=== PATIENT | female | born 1995 | race Caucasian/White ===

== ENCOUNTER 2023-02-12 15:42 | Outpatient (RCR) | payer BC, SELFPAY ==
[2023-01-15 17:27] VITALS: BP 119/71; PULSE 78
[2023-02-12 16:29] VITALS: BP 118/71; PULSE 81
== END 2023-04-15 23:59 | disposition home or self-care (01) ==
LOC: ANHOBOP 15:42
PROVIDERS: Visit Provider Obstetrics & Gynecology
DX: O36.8130 Decreased fetal movements, third trimester, not applicable or unspecified (principal); Z3A.33 33 weeks gestation of pregnancy; Z3A.37 37 weeks gestation of pregnancy
CPT/HCPCS: 59025

== ENCOUNTER 2023-02-14 09:36 | Outpatient (CLI) | payer BC, SELFPAY ==
[2023-02-14 10:28] VITALS: BP 110/55; PULSE 82
--- NOTE | 2023-02-14 11:30 | PC.NURSE ---
Dr Mercado notified of BP and SROM plus negative. OK to DC home, no PIH labs required at this time.
== END 2023-02-14 10:37 | disposition home or self-care (01) ==
LOC: ANHOBOP 10:34 → ANHOBPP 10:34
PROVIDERS: Visit Provider Obstetrics & Gynecology
DX: O26.859 Spotting complicating pregnancy, unspecified trimester (principal); Z3A.00 Weeks of gestation of pregnancy not specified
CPT/HCPCS: 59025; 84112; 99199

== ENCOUNTER 2023-02-17 13:07 | Outpatient (CLI) | payer BC, SELFPAY ==
[2023-02-17 14:07] LABS: RSV RNA, RT-PCR Negative (Negative)
== END 2023-02-17 13:08 | disposition home or self-care (01) ==
LOC: CHSLAB 13:09
PROVIDERS: PCP Family Medicine; Visit Provider Family Medicine
DX: R05.9 Cough, unspecified (principal)
CPT/HCPCS: 87634

== ENCOUNTER 2023-02-19 12:41 | Observation (INO) | payer BC, SELFPAY ==
--- NOTE | 2023-02-19 16:03 | OBADM ---
This patient, Alexis Reyez, admitted to the OB room Labor/Delivery/Recovery 108 for observation. Patient/family oriented to hospital policies and general routines including ID bracelet, bed and alarms, visiting hours, pain management, procedures, bathroom and other care routines, personal items, smoking policy, room service/diet, and visiting hours. Patient/Family are encouraged to report perceived risks to care and to ask questions if they do not understand what they are told or what they should do.
--- NOTE | 2023-02-19 16:18 | PM.OBTRLD ---
OB - Triage/Final Diagnosis Visit Information Date of evaluation: 02/19/23 Reason for evaluation: threatened labor Comments/Additional reasons for admission: I have assessed the risk for this patient, Alexis Emerson Reyez, and determined that she would benefit from observation care.
--- NOTE | 2023-02-19 16:25 | PC.NURSE ---
1531: RN phoned Dr. Leticia Mcgee to inform in of patient's complaints of contractions, contraction pattern, FHTs, BPs, and both SVE. OB stated pt is probably in early labor and gave orders to discharge patient home with instructions on when to return to the hospital.
== END 2023-02-19 16:20 | disposition home or self-care (01) ==
PROVIDERS: Admitting Provider Obstetrics & Gynecology; PCP Family Medicine; Visit Provider Obstetrics & Gynecology
DX: O47.9 False labor, unspecified (principal); Z3A.00 Weeks of gestation of pregnancy not specified
CPT/HCPCS: G0378; G0379

== ENCOUNTER 2023-02-20 03:09 | Inpatient (IN) | payer BC, SELFPAY ==
[2023-02-20] VITALS (84 sets, daily range): BP systolic 79–156; BP diastolic 37–136; PULSE 62–228; RESP 16–20; TEMP 36.2–36.9; O2SAT 95–100; BMI 42.0
--- NOTE | 2023-02-20 03:49 | LDADM ---
This patient, Alexis Reyez, was admitted to Labor/Delivery/Recovery 105 on 02/20/23 at 03:09. Plans for labor, pain management and were discussed with patient. Patient/family oriented to hospital policies and general routines including ID bracelet, bed and alarms, visiting hours, pain management, procedures, bathroom and other care routines, personal items, smoking policy, room service/diet and guest tray routines, security routines, and visiting hours. Patient/Family are encouraged to report perceived risks to care and to ask questions if they do not understand what they are told or what they should do. See OBIX for further documentation.
[2023-02-20 04:23] LABS: Basophils Percent Auto 0.2 % (0.2-1.2); Eosinophils Percent Auto 0.2 % (0-4.4); Hematocrit 35.8 % (37.0-47.0); Hemoglobin 11.7 g/dL (12.0-15.0); Immature Granulocyte Absolute 0.02 K/mm3 (0.00-0.031); Immature Granulocyte Percent A 0.4 % (0-0.5); Lymphocytes Absolute Auto 1.44 K/mm3 (0.9-3.2); Lymphocytes Percent Auto 25.8 % (18.3-44.2); Mean Corpuscular HGB Conc 32.7 g/dl (32-36); Mean Corpuscular Volume 88.8 fl (80-100); Mean Platelet Volume 11.4 fl (7.4-10.4); Monocytes Absolute Auto 0.3 K/mm3 (0.1-0.6); Monocytes Percent Auto 5.9 % (2.6-8.5); Neutrophils Absolute Auto 3.8 K/mm3 (1.3-6.7); Neutrophils Percent Auto 67.5 % (45.5-73.1); Platelet Count Result 178 k/mm3 (150-375); Red Blood Count 4.03 M/mm3 (4.2-5.4); Red Cell Distribution Width 13.8 % (11.5-14.5); White Blood Count 5.6 K/mm3 (4.5-10.0)
--- NOTE | 2023-02-20 05:46 | WPDANESEPPF ---
Anes - Initial Pre Proc Eval Procedure: Labor epidural Date/Time: 02/20/23 05:46 Surgeon: Enzo Mcgee MD Pre Op Diagnosis: Labor pain Pre Op Diagnosis: Contractions Patient Data Age: 27 Gender: F Height: 1.68 m Weight: 118 kg Last Vital Signs Pulse Ox 100 02/20/23 05:41 O2 Del Method Room Air 02/20/23 03:46 Allergies Allergy/AdvReac Type Severity Reaction Status Date / Time No Known Allergies Allergy Verified 02/20/23 05:14 Home Medications Medication Instructions Recorded Confirmed Type vit no.95-ferrous 1 tablet PO DAILY 01/15/23 02/20/23 History fumarate 28 mg-folic acid 800 mcg tablet () Laboratory Tests 02/20/23 03:40 WBC 5.6 K/mm3 (4.5-10.0) RBC 4.03 L M/mm3 (4.2-5.4) Hgb 11.7 L g/dL (12.0-15.0) Hct 35.8 L % (37.0-47.0) MCV 88.8 fl (80-100) MCH 29.0 pg (26-34) MCHC 32.7 g/dl (32-36) RDW 13.8 % (11.5-14.5) Plt Count 178 k/mm3 (150-375) MPV 11.4 H fl (7.4-10.4) Immature Gran % (Auto) 0.4 % (0-0.5) Neut % (Auto) 67.5 % (45.5-73.1) Lymph % (Auto) 25.8 % (18.3-44.2) [place] % (Auto) 5.9 % (2.6-8.5) Eos % (Auto) 0.2 % (0-4.4) Baso % (Auto) 0.2 % (0.2-1.2) Lymph # (Auto) 1.44 K/mm3 (0.9-3.2) [place] # (Auto) 0.3 K/mm3 (0.1-0.6) Eos # (Auto) 0.0 K/mm3 (0-0.3) Baso # (Auto) 0.0 K/mm3 (0.0-0.1) Abs Immat Gran (auto) 0.02 K/mm3 (0.00-0.031) Absolute Neuts (auto) 3.8 K/mm3 (1.3-6.7) Absolute Nucleated RBC 0.0 K/mm3 (0.0-0.012) Nucleated RBC % 0.0 % (0.0-0.2) RPR Pending Blood Type B Positive Antibody Screen Pending Patient hx anesthesia problems: none Family hx anesthesia problems: none Results Review: All pre-operative results and documents have been reviewed as part of the pre-operative evaluation. [facility] Family History Family History Mother Hypertension Grandparent Cerebrovascular accident Social History Social History Smoking status: Never smoker Substance use: never Do You Feel Safe in your Home?: Yes Lack of Transportation: No Lack of Food: Never True Current Housing: I Have Housing Concerned About Future Housing: No Difficulty Paying Gas/Electric Bills: No Difficulty Paying for Meds: No Currently Unemployed: No Education: Associate Degree Difficulty w/ Childcare or Family Care: No Spiritual care concerns: No Anes - Eval Final PreProcedure Day of Procedure 02/20/23 05:46 Patient weight: morbidly obese Heart: regular rate and rhythm Lungs: clear to auscultation Neurological: alert and oriented ASA classification: III Anesthetic plan: proceed Anesthesia type and monitoring: regional epidural and standard monitoring Results Review: All pre-operative results and documents have been reviewed as part of the pre-operative evaluation. Informed Consent: The patient's anesthetic plan and its attendant risks and benefits were discussed with the patient/family/POA. Questions were solicited and answers provided to the satisfaction of the patient/family/POA.
--- NOTE | 2023-02-20 06:08 | WPDANESEPN ---
Anes - Epidural Procedure Note Date/Time: 02/20/23 06:08 Consent: I have discussed with the patient/family/POA, the placement of an epidural catheter and the use of epidural narcotic/local anesthetic for labor analgesia and/or postoperative pain management, including associated potential risks, benefits, complications and side effects. I have discussed alternative methods of labor analgesia and/or postoperative pain management. The patient/family/POA, understand(s) and wish(es) to proceed with epidural narcotic/local anesthetic for labor analgesia and/or postoperative pain management. Time-Out: A pre-procedural Time-Out was completed immediately before starting the procedure and confirmed: Patient Identification, Site, Procedure, Patient Position and the Availability of Requisite Equipment. Clinical Indications: Labor pain Epidural Insertion Note Patient position: sitting Skin prep: chlorhexidine and sterile drape Needle: 18g Tuohy-Schliff Catheter: 20g Unstyleted Technique: Loss of resistance. Level of insertion: L3/4 Catheter skin maeve (cm): 11 Length in epidural space (cm): 5 Skin anesthesia: lidocaine 1% Test dose: 1.5% Lidocaine with 1:[id number] Epi, negative for subarachnoid Inj and negative for intravascular Inj Time of test dose: 05:58 Observations: tolerated well Complications: none
--- NOTE | 2023-02-20 06:34 | PM.IMHP ---
H&P: HPI History of Present Illness Date/Time: 02/20/23 06:34 Chief Complaint: Term in labor Narrative: this is a 27-year-old 1 para 0 whose last menstrual period was 05/20/2022, EDC is 02/27/2023, presents at 39 weeks gestation in active labor. She had negative group B strep. She had an abnormal 1hour diabetic screen III hours GTT was 4/4 normal. [facility] Family History Family History Mother Hypertension Grandparent Cerebrovascular accident Social History Social History Smoking status: Never smoker Substance use: never Do You Feel Safe in your Home?: Yes Lack of Transportation: No Lack of Food: Never True Current Housing: I Have Housing Concerned About Future Housing: No Difficulty Paying Gas/Electric Bills: No Difficulty Paying for Meds: No Currently Unemployed: No Education: Associate Degree Difficulty w/ Childcare or Family Care: No Spiritual care concerns: No Meds Home Medications and Allergies Home Medications Medication Instructions Recorded Confirmed Type vit no.95-ferrous 1 tablet PO DAILY 01/15/23 02/20/23 History fumarate 28 mg-folic acid 800 mcg tablet () Allergies Allergy/AdvReac Type Severity Reaction Status Date / Time No Known Allergies Allergy Verified 02/20/23 05:14 Vital Signs Vital Signs - 24 hr 02/20/23 05:41 02/20/23 05:46 02/20/23 05:48 Pulse Rate Blood Pressure Pulse Oximetry 100 100 100 Oxygen Delivery 02/20/23 05:48 02/20/23 05:49 02/20/23 05:53 Pulse Rate 84 Blood Pressure 134/80 Pulse Oximetry 98 100 Oxygen Delivery 02/20/23 05:59 02/20/23 06:01 02/20/23 06:03 Pulse Rate 65 77 79 Blood Pressure 137/75 138/85 146/87 H Pulse Oximetry 95 Oxygen Delivery 02/20/23 06:06 02/20/23 06:08 02/20/23 06:11 Pulse Rate 83 88 91 Blood Pressure 140/81 147/65 H 150/82 H Pulse Oximetry 99 99 Oxygen Delivery 02/20/23 06:13 02/20/23 06:16 02/20/23 06:18 Pulse Rate 96 89 89 Blood Pressure 155/136 H 140/73 133/52 L Pulse Oximetry 100 Oxygen Delivery 02/20/23 06:21 02/20/23 06:22 02/20/23 06:24 Pulse Rate 92 117 H Blood Pressure 109/96 H 119/89 Pulse Oximetry 99 Oxygen Delivery 02/20/23 06:26 02/20/23 06:27 02/20/23 06:29 Pulse Rate 90 88 Blood Pressure 128/61 114/68 Pulse Oximetry 100 Oxygen Delivery 02/20/23 06:31 02/20/23 06:32 02/20/23 06:34 Pulse Rate 228 H 91 83 Blood Pressure 79/37 L 100/69 124/79 Pulse Oximetry 100 Oxygen Delivery 02/20/23 03:46 Pulse Rate Blood Pressure Pulse Oximetry Oxygen Delivery Room Air Exam Const: General: cooperative, healthy appearing and comfortable Nutritional Appearance: average body habitus Orientation/consciousness: oriented to person, oriented to place and oriented to time HENMT: Head: normal to inspection Resp: Effort & Inspection: normal respiratory effort Cardio: Rate: regular rate Rhythm: regular rhythm Heart sounds: S1 normal heart sound present and S2 normal heart sound present GI: Inspection: normal to inspection ( Gravid soft uterus) : External Female Exam: normal external appearance Speculum Exam - Vagina: normal appearance of the vagina Speculum Exam - Cervix: normal appearance of the cervix ( cervix 4/90/2. AROM with meconium. FHTs reassuring) H&P: Results Labs Labs: Short CBC 02/20/23 Range/Units 03:40 WBC 5.6 (4.5-10.0) K/mm3 Hgb 11.7 L (12.0-15.0) g/dL Hct 35.8 L (37.0-47.0) % Plt Count 178 (150-375) k/mm3 Assessment and Plan Assessment and plan (1) Term : Code(s): Z34.90 - Encounter for supervision of normal , unspecified, unspecified trimester Status: Acute Plan spontaneous vaginal deliveries expected. Epidural is in and working. Peds will be ma
[2023-02-20] MEDS: OXYTOCIN 30 UNITS/NS 500 ML 30 UNITS/500 ML BAG 6 UNITS IV CONT (07:11)
[2023-02-20] MEDS: LACTATED RINGERS 1,000 ML 125 ML IV CONT (07:13)
--- NOTE | 2023-02-20 11:38 | PM.OBPRVD ---
OB - Vaginal Delivery Note Procedure Delivery date: 02/20/23 Intrapartal Events: Ineffetive Pushing/Maternal Exhaustion Induction method: None Delivery augmentation: Pitocin Delivery monitor: External FHT Route of delivery: forceps (outlet) Episiotomy description: None Laceration Description: None Specimen: No Quantitative Blood Loss (ml): 61 Anesthesia type: Epidural Disposition: Floor Complications: No immediate complications Baby Date of : 02/20/23 Time of : 11:29 Weeks of gestation at delivery: 39 gender: Male presentation: vertex position: Right Occiput Anterior Placenta delivery description: Spontaneous Cord Vessel Description: 3 Vessels score one minute: 9 score five minutes: 9
[2023-02-20] MEDS: OXYTOCIN 30 UNITS/NS 500 ML 30 UNITS/500 ML BAG 125 UNITS IV CONT (12:04)
[2023-02-20] MEDS: IBUPROFEN 600 MG TABLET PO (13:35)
[2023-02-20] MEDS: ACETAMINOPHEN 325 MG TABLET 650 MG PO (13:36)
[2023-02-20] MEDS: BENZOCAINE 20% AER SPR (*SP) 56 GM CAN 1 SPRAY TOPICAL (13:36)
[2023-02-20] MEDS: WITCH HAZEL 40 PADS 1 PAD TOPICAL (13:36)
--- NOTE | 2023-02-20 14:25 | PC.NURSE ---
Patient transferred to post room #285 via wheelchair. Support person present. Oriented to unit, room, information board, rooming in, admission packet and security measures. Patient verbalizes understanding.
[2023-02-20 14:45] LABS: Rapid Plasma Reagin Non-Reactive (NonReactive)
--- NOTE | 2023-02-20 18:15 | PM.DS ---
DS: Admitting Diagnosis Discharge Date 02/21/2023 Admitting Diagnosis Term DS: Discharge Diagnosis Discharge Diagnosis (1) Term : Code(s): Z34.90 - Encounter for supervision of normal , unspecified, unspecified trimester Status: Acute DS: Summary Hospital Course Reason for hospitalization: patient was admitted at term in active labor on 02/20/2023 Hospital Course: patient underwent spontaneous vaginal delivery on 02/20/2023. Hospital course unremarkable. She remained afebrile. She was up, voiding without difficulty, ambulating, eating regular diet, and generally without complaints. Time Spent with Patient Time attestation: Total time spent providing and/or coordinating discharge services: Exam Const: General: cooperative, healthy appearing and comfortable Orientation/consciousness: oriented to person, oriented to place and oriented to time HENMT: Head: normal to inspection Resp: Effort & Inspection: normal respiratory effort Cardio: Rate: regular rate Rhythm: regular rhythm Heart sounds: S1 normal heart sound present and S2 normal heart sound present GI: Inspection: normal to inspection DS: Data Data Completed and Pending Labs on day of discharge: Labs from last 24 hours 02/20/23 03:40 WBC 5.6 RBC 4.03 L Hgb 11.7 L Hct 35.8 L MCV 88.8 MCH 29.0 MCHC 32.7 RDW 13.8 Plt Count 178 MPV 11.4 H Immature Gran % (Auto) 0.4 Neut % (Auto) 67.5 Lymph % (Auto) 25.8 [place] % (Auto) 5.9 Eos % (Auto) 0.2 Baso % (Auto) 0.2 Lymph # (Auto) 1.44 [place] # (Auto) 0.3 Eos # (Auto) 0.0 Baso # (Auto) 0.0 Abs Immat Gran (auto) 0.02 Absolute Neuts (auto) 3.8 Absolute Nucleated RBC 0.0 Nucleated RBC % 0.0 RPR Non-reactive Blood Type B Positive Antibody Screen Negative Discharge Plan Discharge Attending physician on discharge: Enzo Godoy Discharging Clinician: Enzo Godoy Patient Disposition: Home, Self-Care Activity: may shower and pelvic rest Diet: heart healthy Wound Care Instructions: follow printed instructions Discharge Instructions: Education: Mom and Baby Guide Given to: Mother Follow-Up: Call your delivering provider's office for an appointment to be seen in: 6 Weeks Mom and baby should come to the [facility] for the follow-up appointment. Appointment Date/Time: February 22, 2023 at 9:00 am What to expect at your follow-up visit: Physical Assessment Call [phone] if you are unable to keep your appointment time. BREAST CARE: * Wear a snug supportive bra. * For engorgement discomfort: Breast Feeding: * Apply warm moist washcloths * Express milk as needed to relieve engorgement * Wear loose clothing Bottle Feeding: * May apply ice packs * For sore nipples: * Identify correct latch-on * Apply warm moist washcloths before and after nursing * Air dry nipples after nursing * May apply Lansinoh cream to nipples ABDOMINAL INCISION: (if applicable) * Allow incision to air dry * Do NOT use lotions for powders on your incision * When showering, allow soap and water to run over the incision, but do not wash incision EPISIOTOMY/PERINEAL CARE: * Until bleeding stops, use your raul bottle after urinating * Change your pad frequently throughout the day * You may take sitz baths several times a day (fill your bathtub with warm water and soak for 20 minutes.) Do NOT bathe in the water * No tub baths until seen by your physician - You may shower ACTIVITY: * Rest as much as possible. * Do not exercise or lift anything heavier than your baby (such as laundry or other children.) * Avoid stairs or driving as much as possible. * Do not put anything into the vagina. No douching, tampons, or sexual activity until seen by physician. NOTIFY PHYSICIAN IF YOU HAVE ANY QUESTIONS OR
[2023-02-21] MEDS: IBUPROFEN 600 MG TABLET PO ×2 (03:41→12:34)
[2023-02-21 04:12] LABS: Hematocrit 31.3 % (37.0-47.0); Hemoglobin 10.4 g/dL (12.0-15.0)
--- NOTE | 2023-02-21 07:04 | PM.OBPNVD ---
OB - PN: Subj Subjective Date/time seen: 02/21/23 07:04 Patient comments: no complaints and pain well controlled baby status: doing well OB - PN: Obj Data Labs 02/21/23 03:37 Labs: Laboratory Results - last 24 hr 02/20/23 02/21/23 03:40 03:37 Hgb 10.4 L Hct 31.3 L RPR Non-reactive OB - PN A/P Plan day: 1 Plan: routine care Time Spent With Patient Time: Total time spent is greater than 50% in coordination of care (as documented) at patient's floor/unit and/or counseling patient: Time with patient: less than 15 minutes Exam Const: General: cooperative, healthy appearing and comfortable Nutritional Appearance: average body habitus Orientation/consciousness: oriented to person, oriented to place and oriented to time HENMT: Head: normal to inspection Resp: Effort & Inspection: normal respiratory effort Cardio: Rate: regular rate Rhythm: regular rhythm Heart sounds: S1 normal heart sound present and S2 normal heart sound present GI: Inspection: normal to inspection
[2023-02-21 08:05] VITALS: BP 123/79; PULSE 84; RESP 18; TEMP 36.5; O2SAT 100
[2023-02-21] MEDS: DOCUSATE SODIUM 100 MG CAPSULE PO (08:08)
[2023-02-21] MEDS: MULTIVIT/MIN/PREN/FOL AC/IRON TABLET 1 TAB PO (08:08)
--- NOTE | 2023-02-21 10:53 | WPDANLDPN2 ---
Anes-Prog Note L&D Date/Time: 02/21/23 10:53 Comfortable throughout: labor and delivery Neuraxial method: epidural Epidural/Spinal procedure site: clean & non-tender Neuro status: Neuro function grossly intact. Cardiovascular status: normal Respiratory status: normal Airway patency: baseline Mental status: baseline Post-Op hydration status: normal Vital Signs: Last Vital Signs Temp 97.7 F 02/21/23 08:05 Pulse 84 02/21/23 08:05 Resp 18 02/21/23 08:05 BP 123/79 02/21/23 08:05 Pulse Ox 100 02/21/23 08:05 O2 Del Method Room Air 02/20/23 03:46 Pain score (VAS): 0/10 Post-procedural complaints: none Patient feedback: Patient satisfied with anesthetic care.
[2023-02-21] MEDS: MEASLES,MUMPS,RUBELLA VACCINE 0.5 ML VIAL SUB-Q (17:16)
[2023-02-22 09:16] VITALS: BP 124/77; PULSE 85; RESP 18; TEMP 36.6; O2SAT 100
== END 2023-02-21 17:47 | disposition home or self-care (01) | DRG 807 ==
LOC: ANHLDR 03:29 → ANHOB2 14:31
PROVIDERS: Obstetrics & Gynecology; Admitting Provider Obstetrics & Gynecology; PCP Family Medicine; Visit Provider Obstetrics & Gynecology
DX: O75.81 Maternal exhaustion complicating labor and delivery (principal); Z37.0 Single live birth; Z3A.39 39 weeks gestation of pregnancy
CPT/HCPCS: 36415; 85014; 85018; 85025; 86592; 86850; 86900; 86901; 90710; A9270; J2590; J2795; J7120

== ENCOUNTER 2024-03-10 12:35 | Outpatient (CLI) | payer SELFPAY ==
[2024-03-10 13:20] VITALS: BP 121/68; PULSE 91
[2024-03-10 14:47] LABS: OBXCEM ROM Plus Negative (Negative)
== END 2024-03-10 13:35 | disposition home or self-care (01) ==
LOC: ANHOBOP 12:44 → ANHOBPP 12:46
PROVIDERS: PCP Family Medicine; Visit Provider Obstetrics & Gynecology
DX: O42.90 Premature rupture of membranes, unspecified as to length of time between rupture and onset of labor, unspecified weeks of gestation (principal); Z3A.00 Weeks of gestation of pregnancy not specified
CPT/HCPCS: 59025; 84112

== ENCOUNTER 2024-04-19 04:50 | Inpatient (IN) | payer MEDICAID, SELFPAY ==
[2024-04-19] VITALS (164 sets, daily range): BP systolic 64–138; BP diastolic 25–93; PULSE 60–184; RESP 16–18; TEMP 36.2–37.2; O2SAT 54–100; BMI 40.9
--- OUTSIDE RECORDS SUMMARY | 2024-04-19 04:55 | XMS_ITS | Encounter Summary ---
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
--- OUTSIDE RECORDS SUMMARY | 2024-04-19 04:55 | XMS_ITS | Clinical Summary ---
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 Gender Identity Not on file Sexual Orientation Not on file Plan of Treatment Health Maintenance Due Date Last Done Comments Cervical Cancer Screening Pa p Smear (Age 21 to 29) Every 3 Years 1995 Cervical Cancer Screening 1995 Annual Physical 11/08/1998 Hepatitis C 11/08/2013 DTaP, Tdap and Td Vaccines ( 1 - Tdap) 11/08/2014 Hepatitis B Vaccines (1 of 3 - 19+ 3-dose series) 11/08/2014 COVID-19 Vaccine (2023-2 5 season) 2023 Influenza Adult (#1) 2023 HPV Vaccines Aged Out No longer eligi ble based on patient's age to complete this topic Meningococcal B Vaccine Aged Out No l onger eligible based on patient's age to complete this topic Meningococcal Vaccine Aged Out No evert anali eligible based on patient's age to complete this topic Pneumococcal Vaccine: Pediat rics (0 to 5 Years) and At-Risk Patients (6 to 64 Years) Aged Out No longer eligible b ased on patient's age to complete this topic RSV Immunizations Under 20 Months Aged Out No longer eligible based on patient's age to complete this topic
--- NOTE | 2024-04-19 05:09 | LDADM ---
This patient, Alexis Reyez, was admitted to Labor/Delivery/Recovery 107 on 04/19/24 at 04:50. Plans for labor, pain management and were discussed with patient. Patient/family oriented to hospital policies and general routines including ID bracelet, bed and alarms, visiting hours, pain management, procedures, bathroom and other care routines, personal items, smoking policy, room service/diet and guest tray routines, security routines, and visiting hours. Patient/Family are encouraged to report perceived risks to care and to ask questions if they do not understand what they are told or what they should do. See OBIX for further documentation.
[2024-04-19 05:27] LABS: Basophils Percent Auto 0.3 % (0.2-1.2); Eosinophils Absolute Auto 0.1 K/mm3 (0-0.3); Eosinophils Percent Auto 0.8 % (0-4.4); Hematocrit 31.8 % (37.0-47.0); Hemoglobin 10.1 g/dL (12.0-15.0); Immature Granulocyte Absolute 0.04 K/mm3 (0.00-0.031); Immature Granulocyte Percent A 0.6 % (0-0.5); Lymphocytes Absolute Auto 1.93 K/mm3 (0.9-3.2); Lymphocytes Percent Auto 30.6 % (18.3-44.2); Mean Corpuscular HGB Conc 31.8 g/dl (32-36); Mean Corpuscular Hemoglobin 25.4 pg (26-34); Mean Corpuscular Volume 80.1 fl (80-100); Monocytes Absolute Auto 0.4 K/mm3 (0.1-0.6); Monocytes Percent Auto 6.2 % (2.6-8.5); Neutrophils Absolute Auto 3.9 K/mm3 (1.3-6.7); Neutrophils Percent Auto 61.5 % (45.5-73.1); Platelet Count Result 201 k/mm3 (150-375); Red Blood Count 3.97 M/mm3 (4.2-5.4); Red Cell Distribution Width 13.2 % (11.5-14.5); White Blood Count 6.3 K/mm3 (4.5-10.0)
[2024-04-19] MEDS: LACTATED RINGERS 1,000 ML 125 ML IV CONT ×3 (05:35→12:38)
[2024-04-19] MEDS: OXYTOCIN 30 UNITS/NS 500 ML 30 UNITS/500 ML BAG IV CONT (05:35)
--- NOTE | 2024-04-19 06:16 | P.PNAN_ITS ---
Anes - Eval Pre Procedure Procedure: Labor epidural Date/Time: 04/19/24 06:16 Surgeon: Leticia Mcgee Preop Diagnosis: Abdominal pain with contractions Pre Op Diagnosis: IOL Patient Data Age: 28 Gender: F Height: 1.7 m Weight: 118.6 kg Last Vital Signs Temp 98.9 F 04/19/24 05:40 Pulse 82 04/19/24 06:02 BP 127/73 04/19/24 06:02 O2 Del Method Room Air 04/19/24 05:07 Allergies Allergy/AdvReac Type Severity Reaction Status Date / Time No Known Allergies Allergy Verified 04/01/24 12:41 Home Medications ?Medication ?Instructions ?Recorded ?Confirmed ?Type vit no.95-ferrous 1 tablet PO DAILY 01/15/23 04/01/24 History fumarate 28 mg-folic acid 800 mcg tablet () Laboratory Tests 04/19/24 05:01 WBC 6.3 K/mm3 (4.5-10.0) RBC 3.97 L M/mm3 (4.2-5.4) Hgb 10.1 L g/dL (12.0-15.0) Hct 31.8 L % (37.0-47.0) MCV 80.1 fl (80-100) MCH 25.4 L pg (26-34) MCHC 31.8 L g/dl (32-36) RDW 13.2 % (11.5-14.5) Plt Count 201 k/mm3 (150-375) MPV 12.0 H fl (7.4-10.4) Immature Gran % (Auto) 0.6 H % (0-0.5) Neut % (Auto) 61.5 % (45.5-73.1) Lymph % (Auto) 30.6 % (18.3-44.2) [place] % (Auto) 6.2 % (2.6-8.5) Eos % (Auto) 0.8 % (0-4.4) Baso % (Auto) 0.3 % (0.2-1.2) Lymph # (Auto) 1.93 K/mm3 (0.9-3.2) [place] # (Auto) 0.4 K/mm3 (0.1-0.6) Eos # (Auto) 0.1 K/mm3 (0-0.3) Baso # (Auto) 0.0 K/mm3 (0.0-0.1) Abs Immat Gran (auto) 0.04 H K/mm3 (0.00-0.031) Absolute Neuts (auto) 3.9 K/mm3 (1.3-6.7) Absolute Nucleated RBC 0.000 K/mm3 (0.0-0.012) Nucleated RBC % 0.0 % (0.0-0.2) RPR Pending HIV 1&2 Ab/P24 Ag 4thGn Pending : gestational age HCG: positive Patient hx anesthesia problems: none Family hx anesthesia problems: none Results Review: All pre-operative results and documents have been reviewed as part of the pre- operative evaluation. [facility] Past Medical History Medical History Term Morbid obesity Family History Family History Mother Hypertension Grandparent Cerebrovascular accident Social History Social History Smoking status: Never smoker Second hand tobacco smoke exposure: No Substance use: never Do You Feel Safe in your Home?: Yes Lack of Transportation: No Lack of Food: Never True Current Housing: I Have Housing Concerned About Future Housing: No Difficulty Paying Gas/Electric Bills: No Difficulty Paying for Meds: No Currently Unemployed: No Education: High School Diploma/GED Difficulty w/ Childcare or Family Care: No Spiritual care concerns: No Exam Day of Procedure 04/19/24 06:16 Patient weight: morbidly obese
[2024-04-19 06:20] LABS: HIV 1/2 Ab P24 Ag Result Negative (Negative)
--- NOTE | 2024-04-19 06:42 | P.HP_ITS ---
H&P: HPI History of Present Illness Date/Time: 04/19/24 06:42 Chief Complaint: Induction of labor at term Narrative: This is 28-year-old 2 para 1 with a negative group B strep screen is admitted with EDC of 04/25/2024 at 39 weeks gestation for induction of labor. The has been uncomplicated in her cervix is favorable she did fail her diabetic screen but passed her 3hour. Review of Systems Review of Systems: All systems reviewed & are unremarkable except as noted in HPI and below PMFSH Past Medical History Medical History Term Morbid obesity Family History Family History Mother Hypertension Grandparent Cerebrovascular accident Social History Social History Smoking status: Never smoker Second hand tobacco smoke exposure: No Substance use: never Do You Feel Safe in your Home?: Yes Lack of Transportation: No Lack of Food: Never True Current Housing: I Have Housing Concerned About Future Housing: No Difficulty Paying Gas/Electric Bills: No Difficulty Paying for Meds: No Currently Unemployed: No Education: High School Diploma/GED Difficulty w/ Childcare or Family Care: No Spiritual care concerns: No Meds Home Medications and Allergies Home Medications ?Medication ?Instructions ?Recorded ?Confirmed ?Type vit no.95-ferrous 1 tablet PO DAILY 01/15/23 04/01/24 History fumarate 28 mg-folic acid 800 mcg tablet () Allergies Allergy/AdvReac Type Severity Reaction Status Date / Time No Known Allergies Allergy Verified 04/01/24 12:41 Vital Signs Vital Signs - 24 hr 04/19/24 05:05 04/19/24 05:07 04/19/24 05:31 Temperature Pulse Rate 102 H 85 Blood Pressure 138/82 136/78 Oxygen Delivery Room Air 04/19/24 05:40 04/19/24 05:47 04/19/24 06:02 Temperature 98.9 F Pulse Rate 99 82 Blood Pressure 129/57 L 127/73 Oxygen Delivery 04/19/24 06:16 04/19/24 06:31 Temperature 98 F Pulse Rate 93 94 Blood Pressure 128/73 122/76 Oxygen Delivery Exam Const: General: cooperative, healthy appearing and comfortable Nutritional Appearance: overweight Orientation/consciousness: oriented to person, oriented to place and oriented to time Resp: Effort & Inspection: normal respiratory effort Cardio: Rate: regular rate Rhythm: regular rhythm Heart sounds: S1 normal heart sound present and S2 normal heart sound present GI: Inspection: normal to inspection (Gravid soft uterus) Auscultation: n ormal bowel sounds : External Female Exam: normal external appearance Speculum Exam - Vagina: normal appearance of the vagina Speculum Exam - Cervix: normal appearance of the cervix (Cervix 3/75/2. AROM clear. FHT is reassuring) H&P: Results Labs Labs: Short CBC 04/19/24 Range/Units 05:01 WBC 6.3 (4.5-10.0) K/mm3 Hgb 10.1 L (12.0-15.0) g/dL Hct 31.8 L (37.0-47.0) % Plt Count 201 (150-375) k/mm3 Assessment and Plan Assessment and plan (1) Term : Code(s): Z34.90 - Encounter for supervision of normal , unspecified, unspecified trimester Status: Acute Plan Proceed with medical induction of labor. Spontaneous vaginal delivery is expected. She is an epidural candidate
[2024-04-19 07:57] LABS: Rapid Plasma Reagin Non-Reactive (NonReactive)
--- NOTE | 2024-04-19 11:40 | PM.OBPNLAB ---
Pain Control Date/time seen: 04/19/24 11:40 Pain control: tolerating well and epidural Pelvic Exam Dilation (cm): 5 Effacement (%): 100 station: -1 Amniotic membrane status: Leaking Contractions Monitor mode: Internal
[2024-04-19] MEDS: ONDANSETRON INJ 4 MG/2 ML VIAL IV PUSH (12:54)
--- NOTE | 2024-04-19 13:12 | P.PNAN_ITS ---
Anes - Initial Pre Proc Eval Procedure: labor epidural Date/Time: 04/19/24 13:12 Surgeon: Enzo Mcgee MD Pre Op Diagnosis: labor pain Pre Op Diagnosis: IOL Patient Data Age: 28 Gender: F Height: 1.7 m Weight: 118.6 kg Last Vital Signs Temp 36.2 C L 04/19/24 12:36 Pulse 184 H 04/19/24 13:01 BP 85/69 L 04/19/24 13:01 Pulse Ox 100 04/19/24 13:11 O2 Del Method Room Air 04/19/24 05:07 Allergies Allergy/AdvReac Type Severity Reaction Status Date / Time No Known Allergies Allergy Verified 04/01/24 12:41 Home Medications ?Medication ?Instructions ?Recorded ?Confirmed ?Type vit no.95-ferrous 1 tablet PO DAILY 01/15/23 04/01/24 History fumarate 28 mg-folic acid 800 mcg tablet () Laboratory Tests 04/19/24 05:01 WBC 6.3 K/mm3 (4.5-10.0) RBC 3.97 L M/mm3 (4.2-5.4) Hgb 10.1 L g/dL (12.0-15.0) Hct 31.8 L % (37.0-47.0) MCV 80.1 fl (80-100) MCH 25.4 L pg (26-34) MCHC 31.8 L g/dl (32-36) RDW 13.2 % (11.5-14.5) Plt Count 201 k/mm3 (150-375) MPV 12.0 H fl (7.4-10.4) Immature Gran % (Auto) 0.6 H % (0-0.5) Neut % (Auto) 61.5 % (45.5-73.1) Lymph % (Auto) 30.6 % (18.3-44.2) [place] % (Auto) 6.2 % (2.6-8.5) Eos % (Auto) 0.8 % (0-4.4) Baso % (Auto) 0.3 % (0.2-1.2) Lymph # (Auto) 1.93 K/mm3 (0.9-3.2) [place] # (Auto) 0.4 K/mm3 (0.1-0.6) Eos # (Auto) 0.1 K/mm3 (0-0.3) Baso # (Auto) 0.0 K/mm3 (0.0-0.1) Abs Immat Gran (auto) 0.04 H K/mm3 (0.00-0.031) Absolute Neuts (auto) 3.9 K/mm3 (1.3-6.7) Absolute Nucleated RBC 0.000 K/mm3 (0.0-0.012) Nucleated RBC % 0.0 % (0.0-0.2) RPR Non-reactive (NonReactive) HIV 1&2 Ab/P24 Ag 4thGn Negative (Negative) Blood Type B Positive Antibody Screen Negative : gestational age HCG: positive Patient hx anesthesia problems: none Family hx anesthesia problems: none Results Review: All pre-operative results and documents have been reviewed as part of the pre- operative evaluation. [facility] Past Medical History Medical History Term Morbid obesity Family History Family History Mother Hypertension Grandparent Cerebrovascular accident Social History Social History Smoking status: Never smoker Second hand tobacco smoke exposure: No Substance use: never Do You Feel Safe in your Home?: Yes Lack of Transportation: No Lack of Food: Never True Current Housing: I Have Housing Concerned About Future Housing: No Difficulty Paying Gas/Electric Bills: No Difficulty Paying for Meds: No Currently Unemployed: No Education: High School Diploma/GED Difficulty w/ Childcare or Family Care: No Spiritual care concerns: No Anes - Eval Final PreProcedure Day of Procedure 04/19/24 13:12 Patient weight: morbidly obese ASA classification: III Anesthetic plan: proceed Anesthesia type and monitoring: regional epidural and standard monitoring Results Review: All pre-operative results and documents have been reviewed as part of the pre- operative evaluation. Informed Consent: The patient's anesthetic plan and its attendant risks and benefits were discussed with the patient/family/POA. Questions were solicited and answers provided to the satisfaction of the patient/family/POA.
--- NOTE | 2024-04-19 14:28 | PM.OBPRVD ---
OB - Vaginal Delivery Note Procedure Delivery date: 04/19/24 Events: Elective Induction of Labor Induction method: AROM Delivery augmentation: Pitocin Delivery monitor: External FHT and Internal Uterine Route of delivery: Episiotomy description: None Laceration Description: None Quantitative Blood Loss (ml): 62 Anesthesia type: Epidural Disposition: Floor Complications: No immediate complications Narrative: Patient was admitted for induction of labor on the early a.m. of 04/19/2024. She progressed an unremarkable 1st stage of labor the head and IUPC placed in epidural anesthesia placed she was complete she pushed delivered head spontaneously in the ROSE MARIE position. Anterior posterior shoulder delivered spontaneously. Cord opted to cut and placed in warmer given Apgars of 8 [id number]. Cord blood was drawn. Placenta intact spontaneously. Twenty of Pitocin placed IV to help firm the uterus. After inspecting all sidewalls no tears lacerations were noted. QBL was 62cc. All sponge, needle, instrument counts were correct. There were no immediate complications Baby Date of : 04/19/24 Time of : 14:21 Gestational Age by Date: 39 Infant gender: Female presentation: vertex position: Right Occiput Anterior Placenta delivery description: Spontaneous Cord Vessel Description: 3 Vessels, Nuchal Cord, Loose and Reduced score one minute: 8 score five minutes: 9
--- NOTE | 2024-04-19 14:31 | P.DS_ITS ---
DS: Admitting Diagnosis Discharge Date 04/20/2024 Admitting Diagnosis Term DS: Discharge Diagnosis Discharge Diagnosis (1) Term : Code(s): Z34.90 - Encounter for supervision of normal , unspecified, unspecified trimester Status: Acute DS: Summary Hospital Course Reason for hospitalization: Patient was admitted for induction of labor at 39 weeks gestation on 04/19/2024 Hospital Course: After a spontaneous vaginal delivery with epidural anesthesia the patient's hospital course was unremarkable. She remained afebrile. She was up, voiding without difficulty, eating regular diet, ambulating, and generally without complaints. Time Spent with Patient Time attestation: Total time spent providing and/or coordinating discharge services: Exam Const: General: cooperative, healthy appearing and comfortable Resp: Effort & Inspection: normal respiratory effort Cardio: Rate: regular rate Rhythm: regular rhythm Heart sounds: S1 normal heart sound present and S2 normal heart sound present GI: Inspection: normal to inspection (Fundus firm below the umbilicus) DS: Data Data Completed and Pending Labs on day of discharge: Labs from last 24 hours 04/19/24 05:01 WBC 6.3 RBC 3.97 L Hgb 10.1 L Hct 31.8 L MCV 80.1 MCH 25.4 L MCHC 31.8 L RDW 13.2 Plt Count 201 MPV 12.0 H Immature Gran % (Auto) 0.6 H Neut % (Auto) 61.5 Lymph % (Auto) 30.6 [place] % (Auto) 6.2 Eos % (Auto) 0.8 Baso % (Auto) 0.3 Lymph # (Auto) 1.93 [place] # (Auto) 0.4 Eos # (Auto) 0.1 Baso # (Auto) 0.0 Abs Immat Gran (auto) 0.04 H Absolute Neuts (auto) 3.9 Absolute Nucleated RBC 0.000 Nucleated RBC % 0.0 RPR Non-reactive HIV 1&2 Ab/P24 Ag 4thGn Negative Blood Type B Positive Antibody Screen Negative Discharge Plan Discharge Attending physician on discharge: Enzo Godoy Discharging Clinician: Enzo Godoy Patient Disposition: Home, Self-Care Activity: may shower, no straining and pelvic rest Diet: heart healthy Wound Care Instructions: follow printed instructions Patient Instructions: Antibiotic Form Patient Language: [place] Stand Alone Forms: General Discharge Information Follow-up/Referrals: Enzo Godoy MD [Physician] - Discharge Medications: Continued PNV cmb#95-ferrous fumarate-FA [] 28 mg iron- 800 mcg Tablet 1 tablet PO DAILY Date of admission: 04/19/24 04:50 Primary Care Provider: Ramsey,Elizabeth Palacios Admitting Provider: Enzo Godoy Attending physician on admission: Enzo Godoy Condition: Stable
--- NOTE | 2024-04-19 17:03 | OBPPTRN ---
Patient transferred to post room #292 via wheelchair. Support person present. Oriented to unit, room, information board, rooming in, admission packet and security measures. Patient verbalizes understanding.
[2024-04-19] MEDS: ACETAMINOPHEN 325 MG TABLET 650 MG PO (18:34)
[2024-04-19] MEDS: IBUPROFEN 600 MG TABLET PO (18:35)
[2024-04-20] MEDS: ACETAMINOPHEN 325 MG TABLET 650 MG PO (04:47)
[2024-04-20] MEDS: IBUPROFEN 600 MG TABLET PO (04:48)
[2024-04-20 05:28] LABS: Hematocrit 29.2 % (37.0-47.0)
--- NOTE | 2024-04-20 07:21 | P.PNOB_ITS ---
OB - PN: Subj Subjective Date/time seen: 04/20/24 07:21 Patient comments: no complaints, pain well controlled and tolerating diet [place] baby status: doing well OB - PN: Obj Data Labs 04/20/24 04:41 Labs: Laboratory Results - last 24 hr 04/19/24 04/20/24 05:01 04:41 Hgb 9.0 L Hct 29.2 L RPR Non-reactive OB - PN A/P Assessment and Plan (1) Term : Code(s): Z34.90 - Encounter for supervision of normal , unspecified, unspecified trimester Status: Acute Plan routine care Time Spent With Patient Time: Total time spent is greater than 50% in coordination of care (as documented) at patient's floor/unit and/or counseling patient: Review of Systems 2 Review of Systems: All systems reviewed & are unremarkable except as noted in HPI and below Exam 2 Const: General: cooperative, healthy appearing and comfortable HENMT: Head: normal to inspection Resp: Effort & Inspection: normal respiratory effort Cardio: Rate: regular rate Rhythm: regular rhythm Heart sounds: S1 normal heart sound present and S2 normal heart sound present GI: Inspection: normal to inspection
[2024-04-20 08:15] VITALS: BP 114/71; PULSE 74; RESP 16; TEMP 36.6; O2SAT 100
[2024-04-20] MEDS: POLYSACCHARIDE IRON COMPLEX 150 MG CAPSULE PO ×2 (09:23→16:14)
[2024-04-20] MEDS: DOCUSATE SODIUM 100 MG CAPSULE PO ×2 (09:23→16:14)
--- NOTE | 2024-04-20 09:23 | WPDANLDPN2 ---
Anes-Prog Note L&D Date/Time: 04/20/24 09:23 Comfortable throughout: labor and delivery Neuraxial method: epidural Epidural/Spinal procedure site: clean & non-tender Neuro status: Neuro function grossly intact. Cardiovascular status: normal Respiratory status: normal Airway patency: baseline Mental status: baseline Post-Op hydration status: normal Vital Signs: Last Vital Signs Temp 36.6 C 04/20/24 08:15 Pulse 74 04/20/24 08:15 Resp 16 04/20/24 08:15 BP 114/71 04/20/24 08:15 Pulse Ox 100 04/20/24 08:15 O2 Del Method Room Air 04/20/24 08:30 Pain score (VAS): 10 I/O: Intake & Output 04/19/24 04/20/24 04/20/24 23:59 07:59 15:59 Output Total 110 Balance -110 Post-procedural complaints: none Patient feedback: Patient satisfied with anesthetic care.
[2024-04-20 12:25] VITALS: BP 116/60; PULSE 79; RESP 16; TEMP 36.7; O2SAT 99
[2024-04-20] MEDS: INFLUENZA TRIVALENT VACCINE 45 MCG/0.5 ML SYRINGE IM (16:14)
== END 2024-04-20 16:29 | disposition home or self-care (01) | DRG 560 ==
LOC: ANHLDR 14:33 → ANHOB2 17:10
PROVIDERS: Admitting Provider Obstetrics & Gynecology; PCP Family Medicine; Visit Provider Obstetrics & Gynecology
DX: O69.81X0 Labor and delivery complicated by cord around neck, without compression, not applicable or unspecified (principal); O99.214 Obesity complicating childbirth; E66.01 Morbid (severe) obesity due to excess calories; O77.0 Labor and delivery complicated by meconium in amniotic fluid; Z3A.39 39 weeks gestation of pregnancy; Z37.0 Single live birth; Z23 Encounter for immunization
CPT/HCPCS: 36415; 85014; 85018; 85025; 86592; 86703; 86850; 86900; 86901; 90471; 90656; A9270; G0008; G0432; J2405; J2590; J2795; J7120